=== PATIENT | male | born 1965 | race Caucasian/White ===

== ENCOUNTER 2018-12-27 10:36 | Day surgery (SDC) | payer BC ==
[2018-12-22 15:56] VITALS: BMI 48.0
[~2018-12-27 10:36] MED LIST: LACTATED RINGERS 1,000 ML IV SCH; LIDOCAINE 1% 20 ML VIAL (10MG/ML) FOR IV START INTRADERMA PRN; MIDAZOLAM (PF) 2 MG/2 ML VIAL IV PRN
[2018-12-27 10:55] VITALS: TEMP 97.2
[2018-12-27] MEDS ORDERED: KETAMINE 10 MG/ML 20 ML VIAL ONE (10:58)
[2018-12-27] MEDS ORDERED: PROPOFOL 10 MG/ML 20 ML VIAL IV ONE (10:58)
[2018-12-27] MEDS ORDERED: LIDOCAINE 1% INJ 10MG/ML (20 ML MDV) ONE (10:58)
[2018-12-27 11:25] VITALS: RESP 18
[2018-12-27 11:52] VITALS: BP 125/78; PULSE 78
--- NOTE | 2018-12-27 11:54 | P.PCN ---
Date of Procedure: 12/27/18 Procedure(s) Performed: Procedure: Colonoscopy and polypectomy. Preoperative diagnosis: Screening for neoplasia, patient has history of polyps. Postoperative diagnosis: 1. Small hepatic flexure polyp snared but no large polyps or cancer. 2. Sigmoid diverticulosis with no evidence of acute diverticulitis or strictures. Preparation: HalfLytely prep. Sedation: Was provided by anesthesia. Brief clinical history: The patient is a 53-year-old male who is scheduled for this evaluation because of history of polyps. His last exam was in April 2014. At this time, he has no abdominal complaints, bleeding or anemia. Procedure: With the patient on his left lateral decubitus position and after informed consent and adequate sedation, the perianal area was inspected and it did not show any fissures or fistulas. There were no masses felt on digital rectal examination. The Olympus CFH 190L video colonoscope was then inserted in the rectum in the usual fashion and advanced to the cecum. There were multiple diverticular orifices seen scattered in the sigmoid as previously described with no evidence of acute diverticulitis or strictures. The mucosa appeared healthy. A small polyp was seen around the hepatic flexure which was snared and retrieved by suction but there were no large polyps or cancer. I retroflexed the endoscope in the rectum before the endoscope was withdrawn. The patient tolerated the procedure well. Plan: The patient was reassured. Discussed dietary measures and I recommended repeat exam in 5 years. He will follow up with you as planned.
== END 2018-12-27 11:53 | disposition home or self-care (01) ==
LOC: ORWHC2ENDO 10:36
DX: Z12.11 Encounter for screening for malignant neoplasm of colon (principal); D12.3 Benign neoplasm of transverse colon; K57.30 Diverticulosis of large intestine without perforation or abscess without bleeding; Z86.010 Personal history of colon polyps; F39 Unspecified mood [affective] disorder; C85.90 Non-Hodgkin lymphoma, unspecified, unspecified site; Z92.21 Personal history of antineoplastic chemotherapy; Z92.3 Personal history of irradiation; Z79.82 Long term (current) use of aspirin; Z79.899 Other long term (current) drug therapy
CPT/HCPCS: 88305; 45385; J2001; J2704

== ENCOUNTER → 2021-10-29 | Outpatient (CLI) | payer BC ==
[2021-10-29 10:15] LABS: HCT 48.9 % (39.0-53.0); HGB 16.6 gm/dL (13.0-17.5); MCH 31.8 pg (25.0-35.0); MCV 93.6 fL (80.0-100.0); Mean Platelet Volume 9.1; Platelet Count 339 k/uL (150-450); RBC 5.23 m/uL (4.30-5.90); RDW 12.5 % (11.5-15.5); WBC 7.9 k/uL (3.8-10.6)
[2021-10-29 10:29] LABS: African American GFR (CKD) >90 (>60 ml/min/1.73 sqM); Anion Gap 8 mmol/L; Blood Urea Nitrogen 13 mg/dL (9-20); Carbon Dioxide 31 mmol/L (22-30); Chloride 101 mmol/L (98-107); Non-African American GFR(CKD) >90 (>60 ml/min/1.73 sqM); Potassium 4.5 mmol/L (3.5-5.1); Sodium 140 mmol/L (137-145)
== END | disposition home or self-care (01) ==
LOC: LABPAT 09:05
PROVIDERS: ATTEND Internal Medicine Clinical Cardiac Electrophysiology
DX: Z01.812 Encounter for preprocedural laboratory examination (principal); Z20.822 Contact with and (suspected) exposure to COVID-19; I48.11 Longstanding persistent atrial fibrillation
CPT/HCPCS: 80051; 82565; 84520; 85027; 36415; U0003; C9803

== ENCOUNTER → 2021-11-15 | Outpatient (CLI) | payer BC ==
[2021-11-15 11:42] LABS: HCT 46.6 % (39.0-53.0); HGB 15.3 gm/dL (13.0-17.5); MCH 31.3 pg (25.0-35.0); MCHC 32.8 g/dL (31.0-37.0); MCV 95.4 fL (80.0-100.0); Mean Platelet Volume 8.6; Platelet Count 318 k/uL (150-450); RBC 4.88 m/uL (4.30-5.90); RDW 12.8 % (11.5-15.5); WBC 8.6 k/uL (3.8-10.6)
[2021-11-15 11:49] LABS: African American GFR (CKD) >90 (>60 ml/min/1.73 sqM); Anion Gap 9 mmol/L; Blood Urea Nitrogen 12 mg/dL (9-20); Carbon Dioxide 28 mmol/L (22-30); Chloride 104 mmol/L (98-107); Non-African American GFR(CKD) >90 (>60 ml/min/1.73 sqM); Potassium 4.3 mmol/L (3.5-5.1); Sodium 141 mmol/L (137-145)
== END | disposition home or self-care (01) ==
LOC: LABWHC1 10:19
PROVIDERS: ATTEND Internal Medicine Clinical Cardiac Electrophysiology
DX: Z01.812 Encounter for preprocedural laboratory examination (principal); I48.11 Longstanding persistent atrial fibrillation
CPT/HCPCS: 80051; 82565; 84520; 85027; 36415; U0003; C9803; U0005

== ENCOUNTER 2021-11-18 10:21 | Day surgery (SDC) | payer BC ==
[2021-11-13 16:17] VITALS: BMI 48.8
[~2021-11-18 10:21] MED LIST changes: -LACTATED RINGERS 1,000 ML IV SCH; -LIDOCAINE 1% 20 ML VIAL (10MG/ML) FOR IV START INTRADERMA PRN; -MIDAZOLAM (PF) 2 MG/2 ML VIAL IV PRN; +SODIUM CHLORIDE 0.9% 1,000 ML IV SCH
[2021-11-18] MEDS ORDERED: LIDOCAINE 1% INJ 10MG/ML (20 ML MDV) ONE ×2 (12:22→13:07)
[2021-11-18] MEDS ORDERED: HEPARIN SODIUM,PORCINE 10,000 UNIT/ML 1 ML VIAL ONE (12:22)
[2021-11-18] MEDS ORDERED: MIDAZOLAM 2 MG/2 ML VIAL ONE (12:22)
[2021-11-18] MEDS ORDERED: SUCCINYLCHOLINE CHLORIDE VIAL 200 MG/10 ML VIAL IV ONE (12:22)
[2021-11-18] MEDS ORDERED: PROPOFOL 10 MG/ML 20 ML VIAL IV ONE (12:22)
[2021-11-18] MEDS ORDERED: fentaNYL (PF) 50 MCG/ML 2 ML AMP ONE (12:22)
[2021-11-18] MEDS ORDERED: HEPARIN SOD,PORK IN 0.45% NACL 25,000 UNIT in 0.45% NACL 1 250ML.BAG IV ONE (13:03)
[2021-11-18] MEDS ORDERED: LIDOCAINE 1% INJ 10MG/ML (20 ML MDV) SQ ONE (13:07)
[2021-11-18] MEDS ORDERED: IOPAMIDOL-370 100ML BTL INJ ONE (14:42)
--- NOTE | 2021-11-18 14:49 | P.EPPROC ---
- EP Procedure Note Electrophysiology Procedure Note: PROCEDURE A. fib ablation, PVI and left atrial septal ablation DIAGNOSIS Atrial fibrillation, symptomatic, refractory to therapy, persistent RESULT No left atrial appendage mass seen on intracardiac echo Successful A. fib ablation/pulmonary vein isolation of all veins using cryo- ablation Complete entrance block in all 4 veins confirmed Left atrial ablation in the septum performed No evidence for phrenic nerve injury Esophageal deflection YES, right-sided esophagus Electrical cardioversion with a synchronized shock across the chest YES PROCEDURE DETAILS Patient was brought to the EP lab in a fasting state after obtaining written informed consent. Procedure performed under general anesthesia Esophagus was intubated. Esophageal temperature monitoring with circa catheter. Esophageal deflection with an endoscope to avoid hypothermia of the esophagus. After initial muscle relaxant use, muscle relaxants were not given thereafter in order to assess phrenic nerve during procedure. Patient prepped and draped as per protocol Cryo ablation-set up with standard preparation of the cryoablation tools done. Femoral Venous access obtained on the right and left groins and sheaths placed Diagnostic catheters for the high right atrium, phrenic nerve stimulation and pacing, His bundle, coronary sinus placed Intracardiac echo catheter placed. Long sheath placed in the right atrium Left and right transseptal catheterization performed under intracardiac echo guidance. Intravenous heparin with aCT above 300 Later, catheter positioning and balloon positioning in the left atrium and pulmonary veins, under intracardiac echo guidance Diagnostic EP study with coronary sinus pacing and recording Baseline measurements: Transseptal catheterization performed RA pressure 20/15/18 LA pressure 24/15/19 Transseptal catheterization performed with standard sheath. The cryoablation sheath was then placed with an over the wire exchange without any acute complications. The cryoablation balloon was placed in the office of each pulmonary vein and all 4 pulmonary veins were isolated. IV dye was injected to confirm occlusion. Goal: achieve complete occlusion of the pulmonary vein, achieve -30 degrees C at 30 seconds and achieve -40 degrees C at 60 seconds and a time to effect of less than 60 seconds. If not, the balloon was repositioned to obtain this result After completion of PVI, entrance block was confirmed with the Attain circular catheter in a roving fashion around the antrum of the pulmonary veins Phrenic nerve pacing was performed from the SVC, right innominate vein area and diaphragm voltage was monitored. Diaphragmatic contractions were also monitored manually for strength of contraction. The anterior abisai on the right side is targeted Chief cath was placed for tributary of the right superior/upper tributary of the right inferior vein, counterclockwise block applied to the sheath to obtain good contact with the anterior septum Left atrial septal wall cryoablation was performed. Electrical quiescence was confirmed At the end of the procedure the Achieve catheter was once again used to check for entrance block Phrenic nerve stimulation was performed to confirm diaphragmatic stimulation the end of the procedure Cine fluoroscopy was performed at the very end of the procedure to confirm movement of both diaphragms with inspiration and expiration At the end of the procedure the patient was extubated Venous sheaths were removed and hemostasis assured with a closure device PROCEDURES PERFORMED Diagnostic EP study CS pacing and recording Left and right transseptal catheterization Catheter the mapping of the tachycardia Intracardiac echocardiography Pulmonary vein isolation with transseptal and comprehensive EPS, [id number] Ablate additional left atrial site for A. fib, [id number] Electrical cardioversion with a synchronized shock across the chest [id number]
[2021-11-18] MEDS ORDERED: ACETAMINOPHEN TAB 325 MG TAB PO PRN (14:50)
[2021-11-18] MEDS ORDERED: ACETAMINOPHEN IV (For NPO) 1,000 MG in EMPTY BAG 1 BAG IVPB ONE (15:00)
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
--- NOTE | 2021-11-18 15:16 | P.PRLE ---
RE: Colby Valdez Dear Dr. Pierce Bowman underwent A. fib ablation with cryoablation and left atrial septal ablation However he remained in atrial fibrillation despite this and required electrical cardioversion Previously he has failed flecainide He has morbid obesity and was being evaluated for sleep apnea I would continue Xarelto 20 mg by mouth daily at this point and hopefully now he becomes responsive to flecainide I emphasized the importance of significant weight reduction and minimizing alcohol intake He will continue to follow with you and Dr. Baig Thank you for entrusting me with the care of the patient Warm regards Sincerely Noah Cid
[2021-11-18] MEDS ORDERED: RIVAROXABAN 20 MG TAB PO SCH (19:00)
[2021-11-18] MEDS: FLECAINIDE 50 MG TAB PO SCH (20:40)
[2021-11-19 08:13] VITALS: BP 142/84; PULSE 92; RESP 16; TEMP 98.3
[2021-11-19] MEDS: FLECAINIDE 50 MG TAB PO SCH (08:37)
[2021-11-19] MEDS ORDERED: PARoxetine 10 MG TAB PO SCH (09:00)
[2021-11-19] MEDS ORDERED: DILTIAZEM CD 180 MG CAP.ER.24H PO SCH (09:00)
== END 2021-11-19 09:37 | disposition home or self-care (01) ==
LOC: CATHEP 10:21 → 6NMEDSUR 14:21 → CATHEP 11-19 09:37
PROVIDERS: ATTEND Internal Medicine Clinical Cardiac Electrophysiology
DX: I48.19 Other persistent atrial fibrillation (principal); R00.0 Tachycardia, unspecified; G47.33 Obstructive sleep apnea (adult) (pediatric); E66.01 Morbid (severe) obesity due to excess calories; Z68.42 Body mass index [BMI] 45.0-49.9, adult; Z79.01 Long term (current) use of anticoagulants; Z79.899 Other long term (current) drug therapy; Z90.81 Acquired absence of spleen; Z98.890 Other specified postprocedural states
CPT/HCPCS: 93609; 93656; C1894 ×2; C1769 ×4; C1760; C1730 ×2; C1759; C1893; C1733; C1766; J2001; Q9967; J1644; 92960

== ENCOUNTER → 2021-12-17 | Outpatient (CLI) | payer BC ==
--- NOTE | 2021-12-17 19:04 | CONS ---
CONSULTATION REASON FOR CONSULTATION: Sleep apnea. This is a 56-year-old obese male patient who has been having episodes of atrial fibrillation, and the patient has undergone previous cardiac ablation and cardioversion. Current rhythm is sinus. The patient is on flecainide and Xarelto. As part of further investigation regarding triggers for his atrial fibrillation, sleep apnea was considered, and the patient was referred to me. The patient snores. However, he denies having any witnessed apneas. He goes to bed around 10 p.m., wakes up at 4:30 a.m. in the morning, and he feels refreshed during the day. He averages around 6 hours of sleep. He does not have any major symptoms of daytime hypersomnia or sleepiness. His weight has been up by around 60 pounds over the past 10 years. Despite his weight gain, he denies having any symptoms of tiredness and sleepiness. No fatigue. He works for [employer] and he does not have any issues with functionality at work. He does not fall asleep at work. He does not fall asleep while watching television or the news or reading the newspaper. He does not take any naps during the day. He does not wake up choking or gasping for air. His sleep is not fragmented. No nocturia. PAST MEDICAL HISTORY: 1. History of non-Hodgkin's lymphoma of the C3, 4, 5 spine, treated with chemoradiation therapy. 2. Paroxysmal atrial fibrillation. 3. Obesity. 4. History of COVID-19 infection, recovered. PAST SURGICAL HISTORY: Past surgical history includes cardiac ablation, cardioversion, arthroscopic surgery of the left knee, laminectomy, C3, 4, 5 for non-Hodgkin's lymphoma, and splenectomy. DRUG ALLERGIES: NOT KNOWN. OUTPATIENT MEDICATION: Outpatient medication includes Paxil 30 mg p.o. daily, Cardizem 240 mg p.o. daily, Tambocor 100 mg twice a day, Xarelto 20 mg p.o. daily, Zyrtec as needed, multivitamin 1 tablet a day. SOCIAL HISTORY: Nonsmoker. No use of alcoholism. No history of IV drugs. FAMILY HISTORY: Negative for sleep apnea. His father and mother had lung and bladder cancer, respectively. Sister had epilepsy. REVIEW OF SYSTEMS: Fourteen-point review of systems was done. Positive findings are all mentioned above in the history of present illness. PHYSICAL EXAMINATION: VITAL SIGNS: BP is 130/81, pulse 61, respirations 16, temperature 96.7, saturation 98% on room air. BMI is 50. Neck size 17-1/2 inches. Allouez score is 6. GENERAL APPEARANCE: Calm, comfortable. HEAD: Atraumatic, normocephalic. Neck is supple. Mallampati class I. No goiter or neck masses. LUNGS: Clear to auscultation. Heart sounds are regular rate and rhythm. Normal S1, S2. No S3, S4. No murmurs. ABDOMEN: Obese, soft, nontender. Organs cannot be palpated. There is no direct tenderness. No rebound tenderness or guarding. EXTREMITIES: Plus one edema. There is no cyanosis or clubbing. NEUROLOGIC: Awake and alert. There is no focal neurological deficit. IMPRESSION: 1. Primary snoring. Consider underlying obstructive sleep apnea, especially with his history of paroxysmal atrial fibrillation. Further investigation will be needed. 2. No major hypersomnia. Allouez score is 6. 3. History of non-Hodgkin's lymphoma of the C3, 4, 5 spine, post chemoradiation therapy, in remission. 4. Paroxysmal atrial fibrillation, post ablation and cardioversion, currently on flecainide and Xarelto. Patient's cardiac rhythm is sinus. 5. Obesity with a body mass index of 50. 6. History of COVID-19 infection and recovery without any major complications. PLAN: 1. Home sleep study to screen this patient for obstructive sleep apnea. 2. Encourage weight loss. 3. Sleep hygiene measures are good. 4. Adequate functionality. 5. Will continue to follow. MMODL / IJN: [id number] /
== END ==
LOC: SLEEP 15:15
PROVIDERS: ATTEND Internal Medicine Critical Care Medicine
DX: R06.83 Snoring (principal); E66.9 Obesity, unspecified; Z68.43 Body mass index [BMI] 50.0-59.9, adult; Z86.16 Personal history of COVID-19; I48.0 Paroxysmal atrial fibrillation; Z85.72 Personal history of non-Hodgkin lymphomas; Z79.01 Long term (current) use of anticoagulants
CPT/HCPCS: 99211

== ENCOUNTER → 2022-05-13 | Outpatient (CLI) | payer BC ==
--- NOTE | 2022-05-13 16:25 | P.PN ---
Subjective Progress Note Date: 05/13/22 This is a 56-year-old male patient who is coming in for the compliance check regarding obstructive sleep apnea. The patient has paroxysmal atrial fibrillation and the patient was also diagnosed with obstructive sleep apnea. Is morbidly obese. The patient is an AHI of 22 and the patient was given an APA P machine which is set at a minimum pressure of 5 and a maximum pressure of 15. On today's evaluation, the patient is reported marked improvement in sleep quality. Is waking up much more to first alert during the day. His snoring is subsided and the patient is very much committed to ongoing CPAP therapy. I checked the compliance data that was collected between 04/13/2027 05/12/2022. Based on the data, the patient has been averaging to 6 hours and 2 minutes of APAP use per night. The machine is being used more than 4 hours 93% of the time. The average pressure that was vitamin she is on 15.8 cm of water. His AHI is down to 0.9. His leak is noted of 17 L per minute. The patient seems to be also committed and losing weight. His cardiac rhythm is sinus for now. No oral dryness. No hypersomnia and sleepiness during the day. No naps during the day. Objective - Exam BP is 139/74 with a pulse of 67 and the respiration of 16. [place]on score is down to 5. Saturations 96% on room air. Temperature 97.4. Weight is down 38. The patient appeared well nourished and normally developed. Vital signs as documented. The patient has a Mallampati class IV. The patient is morbidly obese. Head exam is unremarkable. No scleral icterus or corneal arcus noted. Neck is without jugular venous distension, thyromegaly, or carotid bruits. Carotid upstrokes are brisk bilaterally. Lungs are clear to auscultation and percussion. Cardiac exam reveals the PMI to be normally sized and situated. Rhythm is regular. First and second heart sounds normal. No murmurs, rubs or gallops. Abdominal exam reveals normal bowel sounds, no masses, no organomegaly and no aortic enlargement. Extremities are nonedematous and both femoral and pedal pulses are normal.Examination of the skin revealed no evidence of significant rashes, suspicious appearing nevi or other concerning lesions.Neurologically, the patient is awake and alert and the patient does not have any focal neurological deficit. Cranial nerves are essentially intact. Assessment and Plan Plan: Symptomatic obstructive sleep apnea with an AHI of 22, patient is undergoing successful APAP treatment. hypersomnia, improved with CPAP therapy and the [place] score is down to 5 Morbid obesity Paroxysmal atrial fibrillation current rhythm is sinus Non-Hodgkin's lymphoma, history of Plan Continue CPAP therapy at the same level of pressures. No need for any further adjustments as long as the patient is receiving successful treatment the patient is successfully treated and is clinically improved. He is committed to long- term treatment is benefiting from the treatment. Encourage weight loss. She's comorbidities. Maintain good sleep hygiene measures. Maintain regular sleep schedule. See back in 1-2 years time in follow-up. Treatment is successful. Machine was checked.
== END ==
LOC: SLEEP 15:49
PROVIDERS: ATTEND Internal Medicine Critical Care Medicine
DX: G47.33 Obstructive sleep apnea (adult) (pediatric) (principal); Z99.89 Dependence on other enabling machines and devices; E66.01 Morbid (severe) obesity due to excess calories; I48.0 Paroxysmal atrial fibrillation; Z85.72 Personal history of non-Hodgkin lymphomas

== ENCOUNTER 2024-07-08 13:27 | Day surgery (SDC) | payer BC ==
[2024-07-08 14:04] VITALS: TEMP 97.7
[2024-07-08] MEDS: IV FLUID CONTINUATION 1,000 ML IV ONE (14:07)
[2024-07-08] MEDS: LACTATED RINGERS 1,000 ML IV SCH (14:07)
[2024-07-08] MEDS ORDERED: PROPOFOL 10 MG/ML 20 ML VIAL IV ONE (15:33)
--- NOTE | 2024-07-08 15:54 | P.PCN ---
Date of Procedure: 07/08/24 Procedure(s) Performed: BRIEF HISTORY: Patient is a 59-year-old pleasant white male scheduled for an elective colonoscopy as a part of evaluation by history of colon PROCEDURE PERFORMED: Colonoscopy. PREOPERATIVE DIAGNOSIS: History of colon polyps. IV sedation per Anesthesia. PROCEDURE: After informed consent was obtained, the patient, was brought into the endoscopy unit. IV sedation was administered by Anesthesia under continuous monitoring. Digital rectal examination was normal. Initially the Olympus CF-160 flexible video colonoscope was then inserted in the rectum, gradually advanced into the cecum without any difficulty. Careful examination was performed as the scope was gradually being withdrawn. Ileocecal valve and the appendiceal orifice were visualized and appeared normal. Prep was poor in the right colon. The radiation was performed.. Mucosa of the cecum, ascending colon, transverse colon, descending colon, sigmoid colon, and rectum appeared normal. Scattered sigmoid diverticulosis. Retroflexion was performed in the rectum and grade 2 internal hemorrhoids were seen. The patient tolerated the procedure well. IMPRESSION: Normal-appearing colon from rectum to cecum with no evidence of colorectal neoplasia. Scattered sigmoid diverticulosis Grade 2 internal hemorrhoids RECOMMENDATIONS: Findings of this examination were discussed with the patient and his family. He was advised to have repeat screening colonoscopy in 10 years..
[2024-07-08 16:31] VITALS: BP 109/63; PULSE 55; RESP 20
== END 2024-07-08 16:50 ==
LOC: ORWHC2ENDO 13:27
PROVIDERS: ATTEND Internal Medicine Gastroenterology
DX: Z12.11 Encounter for screening for malignant neoplasm of colon (principal); K57.30 Diverticulosis of large intestine without perforation or abscess without bleeding; K64.1 Second degree hemorrhoids; I48.91 Unspecified atrial fibrillation; G47.33 Obstructive sleep apnea (adult) (pediatric); Z86.010 Personal history of colon polyps; Z79.899 Other long term (current) drug therapy; Z98.890 Other specified postprocedural states
CPT/HCPCS: 45378